=== PATIENT | male | born 1995 | race Caucasian/White ===

== ENCOUNTER 2017-07-02 13:22 | Emergency (ER) | payer MEDICAID, OTHER ==
[~2017-07-02] VITALS: Wt 93.5 kg
[2017-07-02] MEDS ORDERED: LIDOCAINE/MYLANTA 40 ML BTL PO STA (14:24)
[2017-07-02] MEDS ORDERED: FAMOTIDINE 20 MG TAB PO STA (14:24)
--- NOTE | 2017-07-02 14:36 | ERD ---
ER Documentation Chief Complaint Date/Time DATE: 07/02/17 TIME: 14:33 Chief Complaint upper abd pain, nausea HPI This is a 21-year-old male presenting to the emergency department for upper abdominal pain and nausea 1 week. Patient states he has had this pain intermittently for 1 week. Patient rates pain 8/10 to epigastric area. Pain is nonradiating. No back or flank pain. No chest pain, shortness of breath or difficulty breathing. No dysuria or hematuria. No lower abdominal pain. Has tried [id number] medications without relief of symptoms. Patient states he has some nausea. No vomiting or diarrhea. No fevers or chills. Patient states pain improves after ingesting food. No recent travel or sick contacts. No medical problems or surgeries. No allergies to medication. ROS All systems reviewed and are negative except as per history of present illness. Medications Home Meds Active Scripts Famotidine* (Pepcid*) 20 Mg Tablet, 20 MG PO BID for 4 Days, TAB Prov:JOSE SARMIENTO NP 07/02/17 Allergies Allergies: Coded Allergies: No Known Allergy (Unverified , 07/02/17) PMhx/Soc Medical and Surgical Hx: pt denies Medical Hx, pt denies Surgical Hx History of Surgery: No Anesthesia Reaction: No Hx Neurological Disorder: No Hx Respiratory Disorders: No Hx Cardiac Disorders: No Hx Psychiatric Problems: No Hx Miscellaneous Medical Probl: No Hx Alcohol Use: No Hx Substance Use: No Hx Tobacco Use: No Smoking Status: Never smoker Physical Exam Vitals Vital Signs Date Time Temp Pulse Resp B/P Pulse Ox O2 Delivery O2 Flow Rate FiO2 07/02/17 13:27 97.6 76 17 139/77 98 Physical Exam Const: No acute distress, alert Head: Atraumatic Eyes: Normal Conjunctiva ENT: Normal External Ears, Nose and Mouth. Neck: Full range of motion..~ No meningismus. Resp: Clear to auscultation bilaterally Cardio: Regular rate and rhythm, no murmurs Abd: Soft, non distended. Normal bowel sounds. Epigastric tenderness to palpation. Negative Haley sign. Negative rebound tenderness. No tenderness at McBurney point Skin: No petechiae or rashes Back: No midline or flank tenderness Ext: No cyanosis, or edema Neur: Awake and alert Psych: Normal Mood and Affect Result Diagram: 07/02/17 1435 07/02/17 1435 Results 24 hrs Laboratory Tests Test 07/02/17 14:35 White Blood Count 7.710^3/ul Red Blood Count 5.4310^6/ul Hemoglobin 15.8g/dl Hematocrit 47.7% Mean Corpuscular Volume 87.8fl Mean Corpuscular Hemoglobin 29.1pg Mean Corpuscular Hemoglobin Concent 33.1g/dl Red Cell Distribution Width 12.3% Platelet Count 84978^3/UL Mean Platelet Volume 9.8fl Neutrophils % 44.4% Lymphocytes % 39.9% Monocytes % 5.6% Eosinophils % 9.0% Basophils % 0.8% Nucleated Red Blood Cells % 0.0/100WBC Neutrophils # 3.410^3/ul Lymphocytes # 3.110^3/ul Monocytes # 0.410^3/ul Eosinophils # 0.710^3/ul Basophils # 0.110^3/ul Nucleated Red Blood Cells # 0.010^3/ul Sodium Level 144mmol/L Potassium Level 3.7mmol/L Chloride Level 105mmol/L Carbon Dioxide Level 29mmol/L Anion Gap 14 Blood Urea Nitrogen 18mg/dl Creatinine 1.01mg/dl Glucose Level 98mg/dl Calcium Level 9.4mg/dl Total Bilirubin 0.4mg/dl Direct Bilirubin 0.00mg/dl Indirect Bilirubin 0.4mg/dl Aspartate Amino Transf (AST/SGOT) 34IU/L Alanine Aminotransferase (ALT/SGPT) 73IU/L Alkaline Phosphatase 75IU/L Total Protein 7.7g/dl Albumin 4.5g/dl Globulin 3.20g/dl Albumin/Globulin Ratio 1.40 Lipase 207U/L Current Medications Medications (Trade) Dose Ordered Sig/Giovanna Route PRN Reason Start Time Stop Time Status Last Admin Dose Admin Famotidine (Pepcid) 20 mg ONCE STAT PO 07/02/17 14:24 07/02/17 14:26 DC 07/02/17 14:40 Miscellaneous Medication (Gi Cocktail (2)) 40 ml ONCE STAT PO 07/02/17 14:24 07/02/17 14:26 DC 07/02/17 14:40 Procedures/MDM MDM: This is a 21-year-old male presenting to the emergency department for intermittent epigastric pain and nausea 1 week. Patient states pain improves after ingesting food. Has tried [id number] medication without relief of symptoms. Patient is afebrile vital signs are stable. No tachycardia or hypertension. Denies chest pain or heart palpitations. Differential diagnosis includes but not limited to acute AR, pancreatitis, peptic ulcer disease, GERD, gastritis, cholecystitis, cholelithiasis, choledocholithiasis and gastroparesis and functional dyspepsia. I doubt acute AR due to patient's normal vital signs, patient denies chest pain , shortness of breath, difficulty breathing or heart palpitations. I doubt pancreatitis due to patient's normal lab results. Patient is appropriate for outpatient management and instructed to follow-up with primary care provider in the next 2-3 days for reassessment. Upon finding patient for discussion of results, patient unable to be located in the ER and appears to have eloped. Disclaimer: Inadvertent spelling and grammatical errors are likely due to EHR/ dictation software use and do not reflect on the overall quality of patient care. Also, please note that the electronic time recorded on this note does not necessarily reflect the actual time of the patient encounter. Departure Diagnosis: Primary Impression: Abdominal pain Abdominal location: epigastric Qualified Code: R10.13 - Epigastric pain Condition: Stable JOSE SARMIENTO NP Jul 02, 2017 14:36
[2017-07-02 14:53] LABS: BASOPHIL # 0.1 10^3/ul (0.0-0.1); BASOPHILS % 0.8 % (0.0-2.0); EOSINOPHILS # 0.7 10^3/ul (0.0-0.5); HEMATOCRIT 47.7 % (42.0-52.0); HEMOGLOBIN 15.8 g/dl (14.0-18.0); LYMPHOCYTES # 3.1 10^3/ul (0.8-2.9); LYMPHOCYTES % 39.9 % (18.0-55.0); MEAN CORPUSCULAR HEMOGLOBIN 29.1 pg (29.0-33.0); MEAN CORPUSCULAR HGB CONC 33.1 g/dl (32.0-37.0); MEAN CORPUSCULAR VOLUME 87.8 fl (72.0-104.0); MEAN PLATELET VOLUME 9.8 fl (7.4-10.4); MONOCYTE # 0.4 10^3/ul (0.3-0.9); MONOCYTES % 5.6 % (0.0-13.0); NEUTROPHIL # 3.4 10^3/ul (1.6-7.5); NEUTROPHILS % 44.4 % (30.0-74.0); PLATELET COUNT 273 10^3/UL (140-415); RED BLOOD COUNT 5.43 10^6/ul (4.70-6.10); RED CELL DISTRIBUTION WIDTH 12.3 % (11.5-14.5); WHITE BLOOD COUNT 7.7 10^3/ul (4.8-10.8)
[2017-07-02 15:12] LABS: ALBUMIN 4.5 g/dl (3.3-4.9); ALBUMIN/GLOBULIN RATIO 1.4; BILIRUBIN,INDIRECT 0.4 mg/dl (0-1.1); BILIRUBIN,TOTAL 0.4 mg/dl (0.2-1.3); CALCIUM 9.4 mg/dl (8.4-10.2); CREATININE 1.01 mg/dl (0.61-1.24); POTASSIUM 3.7 mmol/L (3.5-5.1); TOTAL PROTEIN 7.7 g/dl (6.1-8.1)
--- NOTE | 2017-07-02 15:16 | RADRPT ---
PROCEDURE: US Abdomen Limited . CLINICAL INDICATION: Abdominal pain TECHNIQUE: Multiple real-time images were acquired of the patient's right upper quadrant abdomen u tilizing a high resolution transducer. COMPARISON: None FINDINGS: The liver measures 16.8 cm and demonstrates a coarsened echogenicity. The gallbladder is filled with a small amount of bile. No shadowing echogenic stones or masses are seen in the gallbladder. The g allbladder wall is not thickened at 2.0 mm. No pericholecystic fluid is noted. The common bile duct measures 3.4 mm in diameter. The pancreas is not well visualized. Antegrade flow is seen in the portal vein. Right kidney measures 9.7 cm. Right kidney demonstrates a normal echogenicity. No hydronephrosis, masses or stones are noted. IMPRESSION: Diffuse fatty infiltration of the liver. Pancreas not well visualized. If characterization of this structure is needed repeat exam or CT/MRI is recommended. RPTAT: AA .Massimo Kwok MD, Date Time Electronically viewed and signed by .Massimo Kwok MD, MD on 07/02/2017 15:16 .P/
[2017-07-02] MEDS ORDERED: FAMO-96 PO (15:52)
== END 2017-07-02 16:31 | disposition left against medical advice (07) ==
LOC: FTE 13:22
DX: R10.13 Epigastric pain (principal)
CPT/HCPCS: 76705; 80053; 83690; 85025; Z7502; Z7610